=== PATIENT | female | born 1940 | race Hispanic/Latino ===

== ENCOUNTER 2025-02-02 11:27 | Emergency (ER) | payer MEDICARE, OTHER ==
[2025-02-02] MEDS ORDERED: Ibuprofen 200 MG TAB ONE (12:05)
[2025-02-02 12:50] LABS: Bacteria/HPF None Seen HPF (None Seen); CAUTI Indications for Culture Dysuria,urgency,freq; Glucose, Urine (Dipstick) Normal (Negative); Leukocyte 75 Leu/uL (Negative); Protein, Urine (Dipstick) 20 mg/dL (Neg-Trace); RBC/HPF 0-3 HPF (0-3); Specific Gravity, Urine 1.046 (1.002-1.036); WBC/HPF 0-3 HPF (0-3)
[2025-02-02 12:51] LABS: Urine Culture Reflex No No
== END 2025-02-02 12:57 | disposition home or self-care (01) ==
LOC: ERS 11:27
DX: N39.0 Urinary tract infection, site not specified (principal); M54.50 Low back pain, unspecified; I11.0 Hypertensive heart disease with heart failure; I50.9 Heart failure, unspecified
CPT/HCPCS: 81001; J2919; Q0162; 96372; 99283